=== PATIENT | male | born 1985 | race Caucasian/White ===

== ENCOUNTER 2016-05-25 15:02 | Emergency (ER) | payer OTHER ==
[~2016-05-25] VITALS: Ht 182.9 cm; Wt 73.9 kg
[2016-05-25] MEDS ORDERED: OXYC1TAB16 PO (15:11)
[2016-05-25] MEDS ORDERED: HYDROmorphone HCL 1 MG/ML SYRINGE (J1170) IV ONE (15:30)
[2016-05-25] MEDS ORDERED: ONDANSETRON 4MG/2ML VIAL (J2405) IV ONE (15:30)
[2016-05-25] MEDS: HYDROmorphone HCL 1 MG/ML SYRINGE (J1170) IV PRN ×2 (16:25→16:49)
[2016-05-25] MEDS ORDERED: NS 1,000 ML IV ONE (17:30)
[2016-05-25] MEDS ORDERED: cefTRIAXone SOD 2 GM in D5W MINI-BAG PLUS 50 ML IV ONE (17:45)
[2016-05-25] MEDS ORDERED: LevoFLOXacin 500 MG TABLET PO ONE (17:45)
[2016-05-25] MEDS ORDERED: KETOROLAC 30 MG/ML VIAL (J1885) IV ONE (17:45)
[2016-05-25 18:41] VITALS: BP 116/69
[2016-05-25] MEDS ORDERED: NAPR500T PO (19:50)
[2016-05-25] MEDS ORDERED: DOXY-278 PO (19:50)
--- NOTE | 2016-05-26 07:19 | REP ---
SCROTAL ULTRASOUND: Real-time sonographic evaluation of the scrotum and contents performed. Right testicle measures 4.6 x 2.5 x 2.7 cm and left testicle 4.9 x 3.1 x 3.1 cm. Cyst in the head of the right epididymis measures 3 mm in maximum diameter. Cyst in the head of the left epididymis measures 5 mm in diameter. The left epididymis appears enlarged and there is increased blood flow with duplex Doppler evaluation. There is also increased blood flow in the left testicle. Findings are most consistent with left epididymitis and orchitis. There is a mild complex left hydrocele. There is a small right hydrocele. There is no torsion bilaterally. With duplex Doppler evaluation, resistive index right testicle 0.56 and left testicle 0.49. IMPRESSION: Increased blood flow left epididymis and testicle with enlarged left epididymis. Findings are most consistent with left epididymitis and orchitis. There is a small complex left hydrocele. Signed by Lg Flores MD 05/26/2016 01:53 P
== END 2016-05-25 20:06 | disposition home or self-care (01) ==
LOC: EDBD 15:02 → M ED 15:38
DX: N45.2 Orchitis (principal); F17.210 Nicotine dependence, cigarettes, uncomplicated; D48.0 Neoplasm of uncertain behavior of bone and articular cartilage

== ENCOUNTER 2016-07-07 05:45 | Inpatient (IN) | payer OTHER ==
[2016-07-07] VITALS (28 sets, daily range): BP systolic 111–145; BP diastolic 56–81
[~2016-07-07] VITALS: Ht 182.9 cm; Wt 67.8 kg
[~2016-07-07 05:45] MED LIST: DOXY-278 PO; NAPR500T PO; OXYC1TAB16 PO
[2016-07-07] MEDS ORDERED: IBUP600T26 PO (05:52)
[2016-07-07] MEDS ORDERED: ALPRAZolam 0.25 MG TAB PO ONE (06:45)
[2016-07-07] MEDS ORDERED: LORazepam 2 MG/ML VIAL (J2060) IM ONE ×2 (07:00→07:15)
[2016-07-07] MEDS ORDERED: HALOPERIDOL 5 MG/ML VIAL (J1630) IM ONE ×2 (07:00→07:15)
[2016-07-07] MEDS ORDERED: diphenhydrAMINE INJ 50MG/ML VIAL (J1200) IM ONE (07:15)
[2016-07-07] MEDS ORDERED: LORazepam 2 MG/ML VIAL (J2060) IV STA ×5 (08:05→10:42)
[2016-07-07] MEDS ORDERED: NS 1,000 ML IV SCH ×2 (09:30→11:22)
[2016-07-07 10:52] LABS: BASO % 0.4 % (0.0-1.0); EOS # 0.1 K/mm3 (0.0-0.50); EOS % 1.1 % (0.0-3.0); LARGE UNSTAINED CELL # 0.4 K/mm3 (0.0-0.4); LARGE UNSTAINED CELL % 3.4 % (0.0-4.0); LYMPH # 2.7 K/mm3 (1.5-4.5); LYMPH % 23.3 % (24.0-44.0); MEAN CORPUSCULAR HEMOGLOBIN 28.4 pg (27.0-33.0); MEAN CORPUSCULAR HGB CONC 32.7 g/dl (32.0-36.5); MEAN CORPUSCULAR VOLUME 86.9 fl (80.0-96.0); MONO # 1.1 K/mm3 (0.0-0.8); MONO % 9.1 % (0.0-5.0); NEUTROPHILS # 7.3 K/mm3 (1.8-7.7); NEUTROPHILS % 62.7 % (36.0-66.0); PLATELET COUNT, AUTOMATED 339 k/mm3 (150-450); RED CELL DISTRIBUTION WIDTH 13.8 % (11.5-14.5); WHITE BLOOD COUNT 11.6 K/mm3 (4.0-10.0)
[2016-07-07 11:11] LABS: ANION GAP 5 MEQ/L (8-16); BLOOD UREA NITROGEN 18 MG/DL (7-18); CALCIUM LEVEL 8.6 MG/DL (8.5-10.1); CARBON DIOXIDE LEVEL 28 MEQ/L (21-32); CHLORIDE LEVEL 108 MEQ/L (98-107); CREATININE FOR GFR 1.05 MG/DL (0.70-1.30); GLOMERULAR FILTRATION RATE > 60.0 (>60); GLUCOSE, FASTING 88 MG/DL (70-105); POTASSIUM SERUM 3.4 MEQ/L (3.5-5.1); SODIUM LEVEL 141 MEQ/L (136-145)
[2016-07-07] MEDS ORDERED: LORazepam 2 MG/ML VIAL (J2060) IV PRN ×2 (11:15)
[2016-07-07] MEDS ORDERED: IBUP60TA PO (11:26)
[2016-07-07] MEDS ORDERED: OXYC10TA12 PO (11:26)
[2016-07-07] MEDS ORDERED: ACETAMINOPHEN 650 MG SUPP PR PRN (11:30)
[2016-07-07 11:37] LABS: INR 1.07
[2016-07-07 11:48] LABS: ALKALINE PHOSPHATASE 64 U/L (45-117); ALT/SGPT 151 U/L (12-78); AST/SGOT 75 U/L (15-37); BILIRUBIN,TOTAL 1.3 MG/DL (0.2-1.0)
--- NOTE | 2016-07-07 11:48 | HPEPDOC ---
General Date of Admission Jul 07, 2016 at 11:22 Chief Complaint The patient is a 31-year-old male who Presented as a transfer from [facility] because of altered mental status and agitation History of Present Illness Patient is a 31 year old male with unknown past medical history who was transferred from [facility] because of altered mental status and agitation. Patient presented to [facility] around 8PM and received Ativan for agitation. He then made an attempt to leave the ER but was brought back and received additional Ativan. [facility] was unable to manage his care and patient was transferred to [facility]. He has received several IV / IM doses of Ativan, totaling 16mg, Haldol 10mg and Benadryl. Poison control was contacted and they have advised continuing with benzodiazepines to the point of sedation. Home Medications Scheduled PRN Ibuprofen (Ibuprofen) 600 Mg Tab 600 MG PO Q6H PRN PRN PAIN (Reported) Oxycodone HCl (Oxycodone HCl) 10 Mg Tab 10 MG PO 5XD PRN PRN PAIN (Reported) Allergies Coded Allergies: NSAIDs (Verified Allergy, Unknown, 07/07/16) Penicillins (Verified Allergy, Unknown, 07/07/16) Past Medical History Medical History - Unable to obtain Surgical History - Unable to obtain Family History - Unable to obtain Social History - Unable to obtain Review of Symptoms Other systems - Unable to obtain Vital Signs - Vitals: BP 113/68, HR 90, RR 20, Sat 98%RA, Temp 97.8F - General: Lying in bed, Agitated, Trashing, Not oriented to person / place / time - HEENT: NC, AT, Unable assess pupils - CVS: Tachycardic, regular rhythm, +S1S2, - Murmurs / rubs / gallops - Lungs: Fair air entry bilaterally, Clear to auscultation, No wheezing / rales / rhonchi - Abdomen: Soft, Non-distended, Non-tender, + Bowel sounds x 4 - Extremities: + PPx4, No lower extremity edema, No calf tenderness - Neuro: Moving all four extremities - Skin: No visible rashes Laboratory Data Labs 24H Laboratory Tests 2 07/07/16 10:30: Blood Urea Nitrogen 18, Creatinine 1.05, Sodium Level 141, Potassium Level 3.4L , Chloride Level 108H, Carbon Dioxide Level 28, Calcium Level 8.6, Total Creatine Kinase 1597H, Anion Gap 5L, White Blood Count 11.6H, Red Blood Count 4.66, Hemoglobin 13.2L, Hematocrit 40.4L, Mean Corpuscular Volume 86.9, Mean Corpuscular Hemoglobin 28.4, Mean Corpuscular Hemoglobin Concent 32.7, Red Cell Distribution Width 13.8, Platelet Count 339, Neutrophils (%) (Auto) 62.7, Lymphocytes (%) (Auto) 23.3L, Monocytes (%) (Auto) 9.1H, Eosinophils (%) (Auto) 1.1, Basophils (%) (Auto) 0.4, Neutrophils # (Auto) 7.3, Lymphocytes # (Auto) 2.7, Monocytes # (Auto) 1.1H, Eosinophils # (Auto) 0.1, Basophils # (Auto) 0.0, Glomerular Filtration Rate > 60.0, Large Unclassified Cells # 0.4, Large Unclassified Cells % 3.4, Prothromb Time International Ratio 1.07, Prothrombin Time 14.0, Urine Amorphous Sediment , Urine Appearance CLEAR, Urine Color YELLOW , Urine pH 6.0, Urine Specific Kelliher 1.021, Urine Protein NEGATIVE, Urine Glucose (UA) NEGATIVE, Urine Ketones TRACEH, Urine Urobilinogen 0.2, Urine Bilirubin NEGATIVE, Urine Leukocyte Esterase NEGATIVE, Urine Bacteria (Auto) NEGATIVE, Urine Blood NEGATIVE, Urine Calcium Carbonate Cryst(Auto) , Urine Calcium Oxalate Cryst (Auto) , Urine Calcium Phosphate Sandra (Auto) , Urine Cellular Casts , Urine Cystine Crystals , Urine Granular Casts (Auto) , Urine Hyaline Casts (Auto) 0, Urine Leucine Crystals , Urine Mucus (Auto) SMALL, Urine Nitrite NEGATIVE, Urine Oval Fat Bodies (Auto) , Urine RBC (Auto) 1, Urine Renal Epithelial Cells , Urine Sperm (Auto) , Urine Squamous Epithelial Cells 0, Urine Transitional Epithelial Cells , Urine Trichomonas (Auto) , Urine Triple Phosphate Cryst (Auto) , Urine Tyrosine Crystals , Urine Uric Acid Crystals (Auto) , Urine WBC (Auto) 1, Urine Waxy Casts (Auto) , Urine Yeast- Like Cells (Auto) CBC/BMP Laboratory Tests 07/07/16 10:30 Calcium Level 8.6, Total Creatine Kinase 1597 H, Red Blood Count 4.66, Mean Corpuscular Volume 86.9, Mean Corpuscular Hemoglobin 28.4, Mean Corpuscular Hemoglobin Concent 32.7, Red Cell Distribution Width 13.8, Neutrophils (%) (Auto ) 62.7, Lymphocytes (%) (Auto) 23.3 L, Monocytes (%) (Auto) 9.1 H, Eosinophils ( %) (Auto) 1.1, Basophils (%) (Auto) 0.4, Neutrophils # (Auto) 7.3, Lymphocytes # (Auto) 2.7, Monocytes # (Auto) 1.1 H, Eosinophils # (Auto) 0.1, Basophils # ( Auto) 0.0 Microbiology Microbiology 07/07/16 Urine Culture, Received Pending Plan / VTE VTE Prophylaxis Ordered?: Yes Plan / Urinary Catheter Reason for insertion/continuin: Critical Pt monitoring Plan Plan Acute metabolic encephalopathy likely 2/2 polysubatance abuse (Bath salts, Amphetamines, Coacine and Opiates) - Patient was transferred from [facility] for further management - Was found to have a positive drug screen there for Amphetamines, Cocaine and Opiates - Physical only reveals an agitated / completed disoriented male / no acute abnormalities otherwise noted - Will repeat lab work and urine drug screen - Poison control was contacted for recommendations; advised that we should continue with Benzodiazepines at this time; recommended that we try Ativan more frequently and possibly try Valium; advised to avoid Haldol and Benadryl - Will c/w IV fluid hydration and Ativan 4mg PRN at q30min; will try Diazepam IV 5mg x 1 dose - Will admit patient to ICU with four point restraints - Neurological checks [id number] - Will consider intubation if uncontrolled with Ativan alone and consult Pulmonary / Critical care Rhabdomyolysis likely 2/2 polysubstance abuse (Cocaine) and agitation - CKMB of 1500s - No evidence of acute kidney injury at this time - Will c/w aggressive IV fluid hydration - Will trend CKMB Leukocytosis (mild) likely reactive; less likely infectious etiology - will check urinalysis and portable CXR Normocytic anemia - Will monitor for now Hypokalemia - will supplement IV fluids with potassium DVT prophylaxis - Will start SCDs MAETUS PASCUAL MD Jul 07, 2016 11:47
[2016-07-07 11:49] LABS: ALBUMIN 3.5 GM/DL (3.2-5.2); ALBUMIN/GLOBULIN RATIO 1.03 (1.00-1.93); MAGNESIUM LEVEL 2.3 MG/DL (1.8-2.4); TOTAL PROTEIN 6.9 GM/DL (6.4-8.2)
--- NOTE | 2016-07-07 12:03 | REP ---
REASON: Dyspnea, possible aspiration. COMPARISON: None. FINDINGS: The technique utilized in obtaining the radiograph has magnified the cardiac silhouette and accentuated the interstitial markings. The superior mediastinal structures are midline. The cardiac silhouette is unremarkable in size, shape, and position. The diaphragmatic surfaces of the lungs are regular, and the costophrenic angles are clear. The pulmonary maria are clear. The imaged osseous structures are intact. IMPRESSION: There is no acute cardiopulmonary disease. Signed by Jace Jara DO 07/07/2016 01:28 P
[2016-07-07] MEDS: LORazepam 2 MG/ML VIAL (J2060) IV PRN ×8 (12:26→23:43)
[2016-07-07] MEDS: KCL 20MEQ in NS 1000ML 1,000 ML IV SCH ×2 (14:06→18:58)
--- NOTE | 2016-07-07 16:01 | ECGEPIP ---
Stationary ECG Study [facility] Test Date: 2016-07-07 Pat Name: LYDIA ZALDIVAR Department: Room: - Gender: M Cardiograph Operator: HAYLEY : 1985 Requested By: MATEUS PASCUAL Order Number: [id number] Reading MD: Mark Posada Measurements Intervals [place] Rate: 76 P: 64 SC: 128 QRS: 49 QRSD: 101 T: 55 QT: 427 QTc: 481 Interpretive Statements SINUS RHYTHM Poor R-wave progression V1-V3. lVH voltages [S V2]. No prior ECG available for comparison at the time of interpretation. Electronically Signed On 07-07-2016 16:00:51 EDT by Mark Posada
[2016-07-07 20:43] LABS: METHADONE URINE NEGATIVE (NEGATIVE)
[2016-07-07 22:50] LABS: ABG BASE EXCESS -1.7 (-2.0-2.0); ABG HCO3 22.2 MEQ/L (22.0-26.0); ABG PARTIAL PRESSURE CO2 35.1 mmHg (35.0-45.0); ABG PARTIAL PRESSURE O2 114.1 mmHg (75.0-100.0); ABG STANDARD HCO3 23.1 MEQ/L (22.0-26.0); ABG TOTAL CO2 23.3 MEQ/L (22.0-29.0); ABG pH (ARTERIAL) 7.419 UNITS (7.350-7.450)
[2016-07-07 23:10] LABS: ANION GAP 10 MEQ/L (8-16); BLOOD UREA NITROGEN 16 MG/DL (7-18); CALCIUM LEVEL 8.1 MG/DL (8.5-10.1); CARBON DIOXIDE LEVEL 24 MEQ/L (21-32); CHLORIDE LEVEL 109 MEQ/L (98-107); GLOMERULAR FILTRATION RATE > 60.0 (>60); GLUCOSE, FASTING 78 MG/DL (70-105); MAGNESIUM LEVEL 2.4 MG/DL (1.8-2.4); POTASSIUM SERUM 4.2 MEQ/L (3.5-5.1); SODIUM LEVEL 143 MEQ/L (136-145)
[2016-07-08] VITALS (16 sets, daily range): BP systolic 114–146; BP diastolic 58–93
[2016-07-08] MEDS: KCL 20MEQ in NS 1000ML 1,000 ML IV SCH (00:52)
[2016-07-08] MEDS: NS 1,000 ML IV SCH ×5 (01:26→20:41)
[2016-07-08] MEDS: LORazepam 2 MG/ML VIAL (J2060) IV PRN ×2 (03:12→06:30)
[2016-07-08 04:48] LABS: BASO # 0.1 K/mm3 (0.0-0.2); BASO % 0.9 % (0.0-1.0); EOS # 0.2 K/mm3 (0.0-0.50); EOS % 2.8 % (0.0-3.0); LARGE UNSTAINED CELL # 0.2 K/mm3 (0.0-0.4); LYMPH # 2.3 K/mm3 (1.5-4.5); LYMPH % 25.9 % (24.0-44.0); MEAN CORPUSCULAR HEMOGLOBIN 29.6 pg (27.0-33.0); MEAN CORPUSCULAR HGB CONC 33.7 g/dl (32.0-36.5); MEAN CORPUSCULAR VOLUME 87.8 fl (80.0-96.0); MONO # 0.7 K/mm3 (0.0-0.8); MONO % 7.8 % (0.0-5.0); NEUTROPHILS # 5.1 K/mm3 (1.8-7.7); NEUTROPHILS % 60.6 % (36.0-66.0); PLATELET COUNT, AUTOMATED 327 k/mm3 (150-450); RED CELL DISTRIBUTION WIDTH 13.7 % (11.5-14.5); WHITE BLOOD COUNT 8.4 K/mm3 (4.0-10.0)
[2016-07-08 06:41] LABS: ALBUMIN 3.1 GM/DL (3.2-5.2); ALBUMIN/GLOBULIN RATIO 1.03 (1.00-1.93); ALKALINE PHOSPHATASE 61 U/L (45-117); ALT/SGPT 145 U/L (12-78); ANION GAP 10 MEQ/L (8-16); AST/SGOT 94 U/L (15-37); BILIRUBIN,TOTAL 1.8 MG/DL (0.2-1.0); BLOOD UREA NITROGEN 15 MG/DL (7-18); CALCIUM LEVEL 8.2 MG/DL (8.5-10.1); CARBON DIOXIDE LEVEL 24 MEQ/L (21-32); CHLORIDE LEVEL 108 MEQ/L (98-107); CREATININE FOR GFR 0.76 MG/DL (0.70-1.30); GLOMERULAR FILTRATION RATE > 60.0 (>60); GLUCOSE, FASTING 70 MG/DL (70-105); MAGNESIUM LEVEL 2.5 MG/DL (1.8-2.4); POTASSIUM SERUM 4.2 MEQ/L (3.5-5.1); SODIUM LEVEL 142 MEQ/L (136-145); TOTAL PROTEIN 6.1 GM/DL (6.4-8.2)
[2016-07-08] MEDS ORDERED: oxyCODONE 5MG TAB PO ONE ×2 (09:30→09:45)
[2016-07-08] MEDS ORDERED: LORazepam 2 MG/ML VIAL (J2060) IV PRN ×2 (11:15)
--- NOTE | 2016-07-08 12:24 | IPNPDOC ---
Text Note Date of Service The patient was seen on 07/08/16. NOTE Subjective: Patient is a 31 year old male with a PMHx of Osteochondroma of the left knee (on pain medications only, doesn't follow with oncology) who was transferred from [facility] because of altered mental status and agitation. Patient was brought into [facility] for agitation. He was transferred to [facility] for further care, at which point poison control was contacted and he was admitted for encephalopathy. Patient was seen and examined at the bedside. He is awake and alert. He is complaining of left knee pain at this time. Objective: Vitals (See below) General: Lying in bed, no acute distress, comfortable, AAOx3 HEENT: NC, AT CVS: RRR, +S1S2 Lungs: Fair air entry b/l, -w/r/r Abdomen: Soft, ND, NT, +BSx4 Extremities: +PPx4, - Edema, - Calf tenderness Assessment and plan: 1. Acute metabolic encephalopathy - likely 2/2 poly-substance abuse ( Amphetamines, Cocaine and Opiates) - Patient was transferred from [facility] for further management; found to have a positive UDS - Physical without any deficits - Poison control was contacted for recommendations - c/w IV fluid hydration - s/p Ativan and 4 point restraints - Currently out of the intoxication period; will consult psychiatry for placement at inpatient mental health unit 2. Rhabdomyolysis likely 2/2 polysubstance abuse (Cocaine) and agitation - CKMB of 1500s on admission; trending down - No evidence of acute kidney injury at this time - c/w aggressive IV fluid hydration until discharge - f/u CKMB at 12pm 3. s/p Leukocytosis (mild) - likely reactive; less likely infectious etiology - CXR negative and UA clear 4. Normocytic anemia - stable 5. s/p Hypokalemia 6. DVT prophylaxis - c/w SCDs VS,Fishbone, I+O VS, Fishbone, I+O Laboratory Tests 07/07/16 22:34 Calcium Level 8.1 L 07/08/16 04:28 Calcium Level 8.2 L, Aspartate Amino Transf (AST/SGOT) 94 H, Alanine Aminotransferase (ALT/SGPT) 145 H, Total Creatine Kinase 1291 H, Alkaline Phosphatase 61, Total Bilirubin 1.8 H, Total Protein 6.1 L, Albumin 3.1 L, Red Blood Count 4.49, Mean Corpuscular Volume 87.8, Mean Corpuscular Hemoglobin 29.6 , Mean Corpuscular Hemoglobin Concent 33.7, Red Cell Distribution Width 13.7, Neutrophils (%) (Auto) 60.6, Lymphocytes (%) (Auto) 25.9, Monocytes (%) (Auto) 7.8 H, Eosinophils (%) (Auto) 2.8, Basophils (%) (Auto) 0.9, Neutrophils # (Auto ) 5.1, Lymphocytes # (Auto) 2.3, Monocytes # (Auto) 0.7, Eosinophils # (Auto) 0.2, Basophils # (Auto) 0.1 Vital Signs Date Time Temp Pulse Resp B/P Pulse Ox O2 Delivery O2 Flow Rate FiO2 07/08/16 11:09 22 100 Room Air 07/08/16 06:00 67 114/58 07/08/16 04:00 98.9 I&O- Last 24 Hours up to 6 AM 07/08/16 05:59 Intake Total 3000 ml Output Total 1645 ml Balance 1355 ml MATEUS PASCUAL MD Jul 08, 2016 12:23
[2016-07-08] MEDS: NICOTINE 21MG/24HR 1 EA TRANSDERMAL TD SCH (13:03)
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
[2016-07-09] VITALS: BP 105/64
[2016-07-09] MEDS: NS 1,000 ML IV SCH ×3 (00:26→07:51)
[2016-07-09 02:00] VITALS: BP 138/77
[2016-07-09 04:00] VITALS: BP 118/73
[2016-07-09 05:08] LABS: BASO # 0.1 K/mm3 (0.0-0.2); BASO % 0.8 % (0.0-1.0); EOS # 0.2 K/mm3 (0.0-0.50); EOS % 3.3 % (0.0-3.0); LARGE UNSTAINED CELL # 0.2 K/mm3 (0.0-0.4); LARGE UNSTAINED CELL % 2.1 % (0.0-4.0); LYMPH # 2.3 K/mm3 (1.5-4.5); LYMPH % 30.9 % (24.0-44.0); MEAN CORPUSCULAR HGB CONC 32.9 g/dl (32.0-36.5); MEAN CORPUSCULAR VOLUME 88.3 fl (80.0-96.0); MONO # 0.6 K/mm3 (0.0-0.8); MONO % 7.8 % (0.0-5.0); NEUTROPHILS # 4.1 K/mm3 (1.8-7.7); NEUTROPHILS % 55.2 % (36.0-66.0); PLATELET COUNT, AUTOMATED 314 k/mm3 (150-450); RED CELL DISTRIBUTION WIDTH 13.5 % (11.5-14.5); WHITE BLOOD COUNT 7.4 K/mm3 (4.0-10.0)
[2016-07-09 05:24] LABS: MAGNESIUM LEVEL 2.2 MG/DL (1.8-2.4)
[2016-07-09 06:50] LABS: ANION GAP 5 MEQ/L (8-16); BLOOD UREA NITROGEN 7 MG/DL (7-18); CALCIUM LEVEL 7.9 MG/DL (8.5-10.1); CARBON DIOXIDE LEVEL 29 MEQ/L (21-32); CHLORIDE LEVEL 111 MEQ/L (98-107); GLOMERULAR FILTRATION RATE > 60.0 (>60); GLUCOSE, FASTING 94 MG/DL (70-105); POTASSIUM SERUM 3.8 MEQ/L (3.5-5.1); SODIUM LEVEL 145 MEQ/L (136-145)
[2016-07-09] MEDS: NICOTINE 21MG/24HR 1 EA TRANSDERMAL TD SCH (09:34)
--- NOTE | 2016-07-09 11:19 | DSES ---
DATE OF ADMISSION: 07/07/2016 DATE OF DISCHARGE TO INPATIENT MENTAL HEALTH UNIT: 07/09/2016 PRIMARY DISCHARGE DIAGNOSES: 1. Acute metabolic encephalopathy secondary to polysubstance abuse with amphetamine, cocaine and opiates. 2. Rhabdomyolysis secondary to cocaine and agitation. 3. Reactive leukocytosis. 4. Normocytic anemia. 5. Hypokalemia. DISCHARGE MEDICATIONS: - ibuprofen 600 mg every 6 hours as needed for pain - oxycodone 10 mg by mouth five times daily as needed for pain HOSPITAL COURSE: This is a 31-year-old male with history of polysubstance abuse transferred to [facility] due to acute metabolic encephalopathy, arrived at [place] around 8 p.m., received Ativan for agitation. Patient attempted to leave against medical advise and was brought back to the emergency room and received additional Ativan and transferred to [facility]. Poison control was contacted. Due to urine drug screen positive for opiates, cocaine and marijuana, poison control advised continuation with benzodiazepines as a point of sedation. Patient was admitted to intensive care unit (ICU) for acute metabolic encephalopathy secondary to bath salts, amphetamines, cocaine and opiates for further management. He was agitated, disoriented with no focal abnormalities neurologically. He was continued on Ativan and Valium, avoid Haldol and Benadryl. He was kept on IV fluids for rhabdomyolysis secondary to polysubstance abuse with cocaine. Increased agitation with creatinine kinase of 1500. No acute kidney injury. Neuro checks were done every 2 hours with plans for possible intubation if no improvement. Patient improved on intravenous sedatives. He had episodes of low potassium which were supplemented with IV fluids. Patient has reactive leukocytosis. White count of 11,000. Urine culture was negative. Showed no growth. No empiric antibiotics were given. Chest x-ray on 07/07 showed no acute cardiopulmonary process. Patient's total CK improved to 672 on discharge. Potassium level was normal. Patient was felt to be stable for discharge to inpatient psychiatry unit. Patient was evaluated by A psychiatrist , due to acute intoxication with severe agitation with psychotic features. Patient was involuntarily admitted to the inpatient psychiatric garcia. Social work has been consulted. LABS ON DISCHARGE: White count 7.4, hemoglobin 12.8, hematocrit 39, platelet count 314. Sodium 145, potassium 3.8, chloride 111, bicarbonate 29, BUN 7, creatinine 0.8, glucose of 94. Total CK is 672. Urine culture 07/07/2016 no growth. Chest x-ray on 07/07/2016 no acute cardiopulmonary process. MTDD
[2016-07-09 12:00] VITALS: BP 123/60
[2016-07-09] MEDS ORDERED: oxyCODONE 5MG TAB PO PRN (12:00)
== END 2016-07-09 15:15 | DRG 773 ==
LOC: M ED 07:14 → M ED INP 11:22 → M ICU 13:45
PROVIDERS: ADMIT Internal Medicine; ATTEND Internal Medicine
DX: F14.121 Cocaine abuse with intoxication with delirium (principal); G93.41 Metabolic encephalopathy; F11.20 Opioid dependence, uncomplicated; M62.82 Rhabdomyolysis; F15.121 Other stimulant abuse with intoxication delirium; F12.229 Cannabis dependence with intoxication, unspecified; F12.288 Cannabis dependence with other cannabis-induced disorder; D64.9 Anemia, unspecified; E87.6 Hypokalemia

== ENCOUNTER 2016-07-09 15:43 | Inpatient (IN) | payer OTHER ==
[~2016-07-09] VITALS: Ht 182.9 cm; Wt 68.6 kg
[~2016-07-09 15:43] MED LIST changes: +IBUP600T26 PO; +IBUP60TA PO; +OXYC10TA12 PO
[2016-07-09 15:58] VITALS: BP 129/82
[2016-07-09] MEDS ORDERED: MOM 30ML SUSPENSION UDC PO PRN (17:30)
[2016-07-09] MEDS ORDERED: MAALOX 30 ML SUSP *UDC PO PRN (17:30)
[2016-07-09] MEDS: oxyCODONE 5MG TAB PO PRN ×2 (18:00→22:13)
[2016-07-09] MEDS: traZODone 50 MG TAB PO PRN (20:39)
--- NOTE | 2016-07-10 00:38 | HPE ---
DATE OF ADMISSION: 07/09/2016 HISTORY OF PRESENT ILLNESS: Please refer to psychiatric history and evaluation for further details on this admission. This examination and history is intended for medical issues, which may need treatment, followup, or consult on this 31-year-old male who was transferred from the intensive care unit (ICU) after having been treated for severe agitation, altered mental status secondary to polysubstance abuse. He was initially transferred from the [facility]. ALLERGIES: NONSTEROIDAL ANTI-INFLAMMATORY DRUGS (NSAIDS), PENICILLIN. PAST MEDICAL HISTORY: Negative. PAST SURGICAL HISTORY: Two left knee surgeries. FAMILY HISTORY: Noncontributory. SOCIAL HISTORY: Single. EtOH (ethanol): He states on the weekends. Smokes one pack of cigarettes per day. Recreational drug use: He rarely smokes marijuana. He states he smoked it the other night, and he feels it was laced with something. He has a history of drug abuse in the past. LABORATORY STUDIES: WBC was 7.4, hemoglobin 12.8, hematocrit 39, platelet count was 314. Sodium 145, potassium 3.8, chloride 111, CO2 of 29, anion gap was 5, BUN 7, creatinine 0.8, calcium 7.9. Total bilirubin 1.8, AST 94, ALT 145. Total creatine kinase was 572. Troponin was less than 0.01. That was on July 07. Toxicology done on July 07 shows urine opiates being positive. Urine-positive amphetamines. Positive benzodiazepines. Positive cocaine. Positive cannabinoids. Chest x-ray on July 07 showed no acute cardiopulmonary disease. REVIEW OF SYSTEMS: A 10-systems review was done. Patient had no complaints. Was feeling physically well. PHYSICAL EXAMINATION: A 31-year-old cooperative male in no acute distress. Height 72 inches, weight 68.6 kg, body mass index (BMI) 20.5 kg. Blood pressure 129/82, pulse 74, respirations 16. Patient is alert and oriented times three. Pupils equal and reactive to light. Extraocular movements (EOMs) intact. Corneae and sclerae clear. Conjunctivae are normal. No facial asymmetry. Pharynx, tongue, and gums pink and moist. Tongue is midline. Neck is supple without lymphadenopathy. No thyromegaly. No goiter. Carotids 2+ without bruits. Chest clear to auscultation without wheezing or retraction. Heart is regular. Abdomen benign. Bowel sounds positive. Genitourinary/rectal not done. Extremities show equal strength, full range of motion. No cyanosis, clubbing, or edema. Peripheral pulses equal and palpable bilaterally. Skin is warm and dry. IMPRESSION AND PLAN: Psychiatric plan per psychiatry. Elevated creatine kinase (CK), elevated liver function tests (LFTs). Repeat CK and comprehensive metabolic panel (CMP) in morning to ensure that they continue to trend down. No other acute medical issues.
[2016-07-10 06:16] VITALS: BP 124/78
[2016-07-10] MEDS: NICOTINE 21MG/24HR 1 EA TRANSDERMAL TD SCH (08:24)
[2016-07-10] MEDS: oxyCODONE 5MG TAB PO PRN ×4 (08:24→21:03)
[2016-07-10 08:32] LABS: ALBUMIN 3.4 GM/DL (3.2-5.2); ALBUMIN/GLOBULIN RATIO 0.97 (1.00-1.93); ALKALINE PHOSPHATASE 68 U/L (45-117); ALT/SGPT 249 U/L (12-78); ANION GAP 5 MEQ/L (8-16); AST/SGOT 140 U/L (15-37); BILIRUBIN,TOTAL 0.6 MG/DL (0.2-1.0); BLOOD UREA NITROGEN 12 MG/DL (7-18); CALCIUM LEVEL 8.6 MG/DL (8.5-10.1); CARBON DIOXIDE LEVEL 30 MEQ/L (21-32); CHLORIDE LEVEL 108 MEQ/L (98-107); CREATININE FOR GFR 1.02 MG/DL (0.70-1.30); GLOMERULAR FILTRATION RATE > 60.0 (>60); GLUCOSE, FASTING 107 MG/DL (70-105); POTASSIUM SERUM 3.8 MEQ/L (3.5-5.1); SODIUM LEVEL 143 MEQ/L (136-145); TOTAL PROTEIN 6.9 GM/DL (6.4-8.2)
[2016-07-10 12:00] VITALS: BP 121/75
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
[2016-07-10 18:00] VITALS: BP 118/72
[2016-07-10 21:58] VITALS: BP 120/67
[2016-07-10] MEDS: traZODone 50 MG TAB PO PRN (22:12)
[2016-07-11 06:16] VITALS: BP 116/67
[2016-07-11] MEDS: NICOTINE 21MG/24HR 1 EA TRANSDERMAL TD SCH (08:07)
[2016-07-11] MEDS: oxyCODONE 5MG TAB PO PRN ×2 (08:08→11:45)
[2016-07-11] MEDS ORDERED: ROXI1TAB2 PO (09:33)
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
== END 2016-07-11 14:10 | DRG 774 ==
LOC: M PSY 15:43
PROVIDERS: ADMIT Psychiatry & Neurology Child & Adolescent Psychiatry; ATTEND Psychiatry & Neurology Child & Adolescent Psychiatry
DX: F14.188 Cocaine abuse with other cocaine-induced disorder (principal); F17.210 Nicotine dependence, cigarettes, uncomplicated; F15.188 Other stimulant abuse with other stimulant-induced disorder

== ENCOUNTER 2018-10-19 05:37 | Emergency (ER) | payer OTHER ==
[~2018-10-19] VITALS: Ht 167.6 cm; Wt 61.8 kg
[~2018-10-19 05:37] MED LIST changes: -DOXY-278 PO; +DOXY-350 PO; +IBUP-1022 PO; +IBUP1TAB6 PO; -IBUP600T26 PO; -IBUP60TA PO; +NAPR-837 PO; -NAPR500T PO; +OXYC10TA3 PO; -OXYC1TAB16 PO; +ROXI1TAB2 PO
[2018-10-19] MEDS ORDERED: NS 1,000 ML IV ONE (06:00)
[2018-10-19 06:05] LABS: BASO # 0.1 10^3/uL (0.0-0.2); BASO % 0.7 % (0.0-1.0); EOS # 0.2 10^3/uL (0.0-0.50); EOS % 1.6 % (0.0-3.0); HEMATOCRIT 36.2 % (42.0-52.0); HEMOGLOBIN 12.2 g/dl (13.5-17.5); LYMPH # 2.6 10^3/uL (1.5-4.5); LYMPH % 18.4 % (24.0-44.0); MEAN CORPUSCULAR HEMOGLOBIN 28.9 pg (27.0-33.0); MEAN CORPUSCULAR HGB CONC 33.7 g/dl (32.0-36.5); MEAN CORPUSCULAR VOLUME 85.8 fl (80.0-96.0); MONO # 1.1 10^3/uL (0.0-0.8); MONO % 7.7 % (0.0-5.0); NEUTROPHILS # 10.1 10^3/uL (1.8-7.7); PLATELET COUNT, AUTOMATED 488 10^3/uL (150-450); RED BLOOD COUNT 4.22 10^6/uL (4.30-6.10); WHITE BLOOD COUNT 14.2 10^3/uL (4.0-10.0)
[2018-10-19 06:37] LABS: BLOOD UREA NITROGEN 27 MG/DL (7-18); CALCIUM LEVEL 8.8 MG/DL (8.5-10.1); CARBON DIOXIDE LEVEL 28 MEQ/L (21-32); CHLORIDE LEVEL 105 MEQ/L (98-107); CPK CREATINE PHOSPHOKINASE 707 U/L (39-308); CREATININE FOR GFR 1.25 MG/DL (0.70-1.30); ETHYL ALCOHOL (ETHANOL) < 0.003 % (0.000-0.010); GLOMERULAR FILTRATION RATE > 60.0 (>60); GLUCOSE, FASTING 126 MG/DL (70-100); POTASSIUM SERUM 3.8 MEQ/L (3.5-5.1); SODIUM LEVEL 140 MEQ/L (136-145)
[2018-10-19 06:45] VITALS: BP 96/53
== END 2018-10-19 07:39 | disposition home or self-care (01) ==
LOC: M ED 05:37
DX: F16.22 Hallucinogen dependence with intoxication (principal); F43.10 Post-traumatic stress disorder, unspecified; Z88.0 Allergy status to penicillin; Z88.8 Allergy status to other drugs, medicaments and biological substances; F17.210 Nicotine dependence, cigarettes, uncomplicated
CPT/HCPCS: 36415; 80048; 82550; 85025; 99285; G0480

== ENCOUNTER 2019-12-02 10:52 | Emergency (ER) | payer OTHER ==
[~2019-12-02] VITALS: Ht 167.6 cm; Wt 61.8 kg
[2019-12-02 11:31] LABS: HEMATOCRIT 37.4 % (42.0-52.0); HEMOGLOBIN 12.6 g/dl (13.5-17.5); MEAN CORPUSCULAR HEMOGLOBIN 28.3 pg (27.0-33.0); MEAN CORPUSCULAR HGB CONC 33.7 g/dl (32.0-36.5); MEAN CORPUSCULAR VOLUME 83.9 fl (80.0-96.0); PLATELET COUNT, AUTOMATED 357 10^3/uL (150-450); RED BLOOD COUNT 4.46 10^6/uL (4.30-6.10)
[2019-12-02 12:09] LABS: ACETAMINOPHEN LEVEL < 2.0 UG/ML (10.0-30.0); ALBUMIN 3.8 GM/DL (3.2-5.2); ALT/SGPT 59 U/L (12-78); BILIRUBIN,DIRECT 0.1 MG/DL (0.0-0.2); BILIRUBIN,TOTAL 0.4 MG/DL (0.2-1.0); BLOOD UREA NITROGEN 11 MG/DL (7-18); CALCIUM LEVEL 8.9 MG/DL (8.5-10.1); CARBON DIOXIDE LEVEL 26 MEQ/L (21-32); CHLORIDE LEVEL 107 MEQ/L (98-107); CREATININE FOR GFR 0.91 MG/DL (0.70-1.30); ETHYL ALCOHOL (ETHANOL) < 0.003 % (0.000-0.010); GLOMERULAR FILTRATION RATE > 60.0 (>60); GLUCOSE, FASTING 101 MG/DL (70-100); POTASSIUM SERUM 3.7 MEQ/L (3.5-5.1); SALICYLATE LEVEL 3.3 MG/DL (5.0-30.0); SODIUM LEVEL 140 MEQ/L (136-145); TOTAL PROTEIN 7.4 GM/DL (6.4-8.2)
[2019-12-02 12:18] LABS: AMPHETAMINES LEVEL URINE POSITIVE (NEGATIVE); BARBITURATES URINE NEGATIVE (NEGATIVE); BENZODIAZEPINES URINE NEGATIVE (NEGATIVE); CANNABINOIDS URINE POSITIVE (NEGATIVE); COCAINE METABOLITE URINE NEGATIVE (NEGATIVE); METHADONE URINE NEGATIVE (NEGATIVE); OPIATES URINE NEGATIVE (NEGATIVE); PHENCYCLIDINE URINE NEGATIVE (NEGATIVE)
--- NOTE | 2019-12-02 12:52 | REPVR ---
PROCEDURE INFORMATION: Exam: CT Head Without Contrast Exam date and time: 12/02/2019 12:39 PM Age: 34 years old Clinical indication: Altered mental status/memory loss; Confusion or disorientation TECHNIQUE: Imaging protocol: Computed tomography of the head without contrast. Radiation optimization: All CT scans at this facility use at least one of these dose optimization techniques: automated exposure control; mA and/or kV adjustment per patient size (includes targeted exams where dose is matched to clinical indication); or iterative reconstruction. COMPARISON: No relevant prior studies available. FINDINGS: Brain: Examination of the brain demonstrates normal structure and attenuation.The cortical david / white matter interfaces are preserved throughout the brain.No acute infarction, masses or hemorrhage is seen. Ventricles: The ventricular system is not dilated and is appropriate for the patient's age. Bones/joints: Unremarkable. No acute fracture. Sinuses: Visualized sinuses are unremarkable. No fluid levels. Mastoid air cells: Visualized mastoid air cells are well aerated. Soft tissues: Unremarkable. IMPRESSION: No acute infarction, masses or hemorrhage is seen. No acute intracranial abnormality is identified. Electronically signed by: Michele Farris On 12/02/2019 12:52:13 PM
--- NOTE | 2019-12-02 12:55 | REPVR ---
PROCEDURE INFORMATION: Exam: XR Chest, 1 View Exam date and time: 12/02/2019 12:51 PM Age: 34 years old Clinical indication: Chest pain; Additional info: Altered mental status TECHNIQUE: Imaging protocol: XR of the chest Views: 1 view. COMPARISON: CR PORTABLE CHEST X-RAY 07/07/2016 11:34 AM FINDINGS: Lungs: No acute infiltrate is seen. Pleural space: No pneumothorax or pleural effusion is seen. Heart/Mediastinum: No cardiomegaly. Bones/joints: The visualized osseous structures are unremarkable. No acute fracture or dislocation is seen. IMPRESSION: No acute infiltrate, pneumothorax or pleural effusion is seen. Electronically signed by: Michele Farris On 12/02/2019 12:55:24 PM
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
[2019-12-02 16:33] VITALS: BP 119/62
--- NOTE | 2019-12-07 20:07 | ECGEPIP ---
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
== END 2019-12-02 16:35 | disposition home or self-care (01) ==
LOC: M ED 10:52
DX: F15.10 Other stimulant abuse, uncomplicated (principal); F43.10 Post-traumatic stress disorder, unspecified; Z88.0 Allergy status to penicillin; Z88.8 Allergy status to other drugs, medicaments and biological substances; F17.210 Nicotine dependence, cigarettes, uncomplicated
CPT/HCPCS: 36415; 70450; 71045; 80048; 80076; 80307; 81001; 84443; 85027; 93005; 99284; G0480